=== PATIENT | male | born 1965 | race Two or more races ===

== ENCOUNTER 2021-02-04 05:50 | Day surgery (SDC) | payer OTHER ==
[2021-02-04] MEDS ORDERED: COLACE100 MG PO (09:57)
[2021-02-04] MEDS ORDERED: NEURONTIN300 MG PO (09:57)
[2021-02-04] MEDS ORDERED: PERCOCET 5-3251 EACH PO (09:57)
== END 2021-02-04 18:25 | disposition home or self-care (01) ==
LOC: CIR.AMB 05:50
PROVIDERS: ATTEND Surgery
DX: D12.9 Benign neoplasm of anus and anal canal (principal); K64.4 Residual hemorrhoidal skin tags; K64.8 Other hemorrhoids; Z20.822 Contact with and (suspected) exposure to COVID-19